=== PATIENT | male | born 1945 | race Caucasian/White ===

== ENCOUNTER 2019-03-18 13:30 | Inpatient (IN) | payer MEDICARE ==
[2019-03-18 13:47] VITALS: BMI 26.6
--- NOTE | 2019-03-18 14:25 | History and Physical Report ---
History of Present Illnes - History of Present Illness Reason for Visit: L TKR History of Present Illness: Patient was admitted to the [facility] for L TKR on 03-15-19. Post op course was uncomplicated. He will be admitted here for SNF for therapy as he is not suitable to go home to [place]. - Past Medical History Cardiac: HTN, Hyperlipidemia Pulmonary: Sleep Apnea Psych: Anxiety Musculoskeletal: Osteoarthritis ENT: Allergic rhinitis Renal/: Benign prostatic enlarg. Endocrine: Other (hyperglycemia) - Past Surgical History Past Surgical History: Other (shoulder surgery) - Past Family History Mother Family History: Father Family History: Other (living at ) - Past Social History Smoke: No Alcohol: None Drugs: None Lives: Alone - Health Maintenance Health Maintenance: Cholesterol, Influenza Vaccine, Pneumococcal Vaccine Influenza Vaccine: Current for this Influenza Season Pneumonia Vaccine: Yes Resuscitation Status: Resusciation Status Resuscitation Status Full Code Review of Systems - Review of Systems Constitutional: Weakness. negative: Fever Eyes: negative: pain ENT: negative: Ear Pain Respiratory: negative: Cough Cardiovascular: negative: Chest Pain Gastrointestinal: negative: Nausea, Abdominal Pain Genitourinary: negative: Dysuria Musculoskeletal: Leg Pain Skin: negative: Rash Neurological: Weakness - Medications/Allergies Allergies/Adverse Reactions: Allergies Allergy/AdvReac Type Severity Reaction Status Date / Time No Known Drug Allergies Allergy Verified 03/18/19 17:04 Home Medications: Home Medications Albuterol Sulfate [Proair Respiclick] 2 puff INH QID PRN 03/18/19 Aspirin [Irland[place]] 81 mg PO DAILY 03/18/19 Carboxymethylcellulose Sodium [Lubricating Plus] 1 each OP PRN PRN 03/18/19 Docusate Sodium [Colace] 100 mg PO BID 03/18/19 Enoxaparin Sodium [Lovenox] 40 mg SQ DAILY MDD use for 28 days 03/18/19 Finasteride [Proscar] 5 mg PO DAILY 03/18/19 Hydrochlorothiazide 12.5 mg PO AM 03/18/19 Loratadine [Claritin] 10 mg PO DAILY PRN 03/18/19 Multivitamin [Tab-A-Parth] 1 tab PO DAILY 03/18/19 Niacin 500 mg PO TID 03/18/19 Oxycodone HCl [Roxicodone] 5 mg PO Q4H PRN 03/18/19 Piroxicam [Feldene] 20 mg PO DAILY 03/18/19 Tamsulosin HCl 0.4 mg PO DAILY 03/18/19 metFORMIN HCl [Glucophage] 500 mg PO AM 03/18/19 Exam - Exam Vital Signs: Vital Signs (72 hours) 03/18/19 03/18/19 13:40 13:43 Temperature 99.5 F 99.5 F Pulse Rate [ 101 H 101 H Left] Respiratory 20 20 Rate Blood Pressure 151/97 151/97 [Left Arm] O2 Sat by Pulse 95 95 Oximetry General: Alert, Oriented to Person, Oriented to Place, Oriented to Time, Cooperative, No acute distress HEENT: Atraumatic, PERRLA, EOMI, Mouth Mucous membr. moist/[place] Neck: Normal Range of Motion Lungs: Clear to auscultation, Normal air movement, Speaks full Sentences Cardiovascular: Regular rate Abdomen: Normal bowel sounds, Soft Integumentary: Normal Extremities: No edema, Other (L knee incisision C/D/I) Neurological: Generalized Weakness Psych/Mental Status: Mental status NL, Mood NL, Appropriate Affect, Intact Judgment Assessment/Plan - Assessment/Plan (1) S/P total knee replacement Status: Acute Current Visit: Yes Plan: Patient set to [facility] at 11:30 and PCP 04-29-19 at 10:20. ON lovenox for 28 days. Will check CBC next week. Oxycodone sent for pain. Also piroxicam but since NF will give celebrex. (2) Ataxic gait Status: Acute Current Visit: Yes Plan: Admit to SNF for PT/OT. (3) Hyperglycemia Status: Acute Current Visit: Yes Plan: No diagnosis of DM but on metformin. Will monitor BS for a week then go from there. (4) HTN (hypertension) Status: Chronic Current Visit: No Qualifiers: Hypertension type: essential hypertension Qualified Code(s): I10 - Essential (primary) hypertension Plan: continue current meds. (5) Sleep apnea Status: Chronic Current Visit: No Plan: Continue CPap VTE Assessment - RISK FACTOR SCORE VTE RISK FACTOR SCORES: AGE OVER 60 YEARS, MAJOR SURGERY/ANESTHESIA TIME > 1 HOUR - RISK VTE MODERATE RISK: SCORE OF 2 (RISK PROXIMAL DVT 2-4%) PROPHYAXIS NEEDED
[2019-03-18] MEDS ORDERED: LORATADINE 10 MG TABLET PO PRN (16:33)
[2019-03-18] MEDS: oxyCODONE HCL 5 MG TABLET PO PRN ×2 (16:57→21:18)
[2019-03-18] MEDS: DOCUSATE SODIUM 100 MG CAPSULE PO SCH (21:05)
[2019-03-18] MEDS: NIACIN 500 MG TABLET.ER PO SCH (21:06)
[2019-03-19] MEDS: oxyCODONE HCL 5 MG TABLET PO PRN ×3 (02:43→20:59)
[2019-03-19] MEDS: ENOXAPARIN SODIUM 40 MG/0.4 ML DISP.SYRIN SQ SCH (08:21)
[2019-03-19] MEDS: DOCUSATE SODIUM 100 MG CAPSULE PO SCH ×2 (08:21→20:27)
[2019-03-19] MEDS: ASPIRIN 81 MG CHEW TAB PO SCH (08:21)
[2019-03-19] MEDS: metFORMIN HCl 500 MG TABLET PO SCH (08:21)
[2019-03-19] MEDS: FINASTERIDE 5 MG TABLET PO SCH (08:21)
[2019-03-19] MEDS: TAMSULOSIN HCL 0.4 MG CAP.ER.24H PO SCH (08:21)
[2019-03-19] MEDS: CELECOXIB 100 MG CAPSULE PO SCH (08:21)
[2019-03-19] MEDS: NIACIN 500 MG TABLET.ER PO SCH ×3 (08:22→20:27)
[2019-03-19] MEDS: hydroCHLOROthiazide 25 MG TABLET PO SCH (08:22)
[2019-03-19] MEDS: MULTIVITAMIN 1 EACH TABLET PO SCH (08:22)
[2019-03-20] MEDS ORDERED: traZODone HCL 50 MG TABLET ONE (02:07)
[2019-03-20] MEDS: TAMSULOSIN HCL 0.4 MG CAP.ER.24H PO SCH (09:26)
[2019-03-20] MEDS: hydroCHLOROthiazide 25 MG TABLET PO SCH (09:26)
[2019-03-20] MEDS: ENOXAPARIN SODIUM 40 MG/0.4 ML DISP.SYRIN SQ SCH (09:26)
[2019-03-20] MEDS: NIACIN 500 MG TABLET.ER PO SCH ×3 (09:27→20:14)
[2019-03-20] MEDS: FINASTERIDE 5 MG TABLET PO SCH (09:27)
[2019-03-20] MEDS: CELECOXIB 100 MG CAPSULE PO SCH (09:27)
[2019-03-20] MEDS: MULTIVITAMIN 1 EACH TABLET PO SCH (09:27)
[2019-03-20] MEDS: ASPIRIN 81 MG CHEW TAB PO SCH (09:27)
[2019-03-20] MEDS: DOCUSATE SODIUM 100 MG CAPSULE PO SCH ×2 (09:27→20:14)
[2019-03-20] MEDS: metFORMIN HCl 500 MG TABLET PO SCH (09:27)
[2019-03-20] MEDS: ACETAMINOPHEN 325 MG TABLET PO PRN (20:14)
[2019-03-21] MEDS: DOCUSATE SODIUM 100 MG CAPSULE PO SCH ×2 (09:47→21:12)
[2019-03-21] MEDS: ASPIRIN 81 MG CHEW TAB PO SCH (09:47)
[2019-03-21] MEDS: CELECOXIB 100 MG CAPSULE PO SCH (09:47)
[2019-03-21] MEDS: metFORMIN HCl 500 MG TABLET PO SCH (09:48)
[2019-03-21] MEDS: hydroCHLOROthiazide 25 MG TABLET PO SCH (09:48)
[2019-03-21] MEDS: TAMSULOSIN HCL 0.4 MG CAP.ER.24H PO SCH (09:48)
[2019-03-21] MEDS: ENOXAPARIN SODIUM 40 MG/0.4 ML DISP.SYRIN SQ SCH (09:49)
[2019-03-21] MEDS: FINASTERIDE 5 MG TABLET PO SCH (09:49)
[2019-03-21] MEDS: MULTIVITAMIN 1 EACH TABLET PO SCH (09:50)
[2019-03-21] MEDS: NIACIN 500 MG TABLET.ER PO SCH ×3 (09:50→21:13)
[2019-03-21] MEDS: oxyCODONE HCL 5 MG TABLET PO PRN (21:12)
[2019-03-22] MEDS: TAMSULOSIN HCL 0.4 MG CAP.ER.24H PO SCH (08:26)
[2019-03-22] MEDS: ENOXAPARIN SODIUM 40 MG/0.4 ML DISP.SYRIN SQ SCH (08:26)
[2019-03-22] MEDS: DOCUSATE SODIUM 100 MG CAPSULE PO SCH ×2 (08:26→20:22)
[2019-03-22] MEDS: oxyCODONE HCL 5 MG TABLET PO PRN ×2 (08:27→20:22)
[2019-03-22] MEDS: MULTIVITAMIN 1 EACH TABLET PO SCH (08:27)
[2019-03-22] MEDS: CELECOXIB 100 MG CAPSULE PO SCH (08:27)
[2019-03-22] MEDS: FINASTERIDE 5 MG TABLET PO SCH (08:27)
[2019-03-22] MEDS: ASPIRIN 81 MG CHEW TAB PO SCH (08:27)
[2019-03-22] MEDS: metFORMIN HCl 500 MG TABLET PO SCH (08:27)
[2019-03-22] MEDS: hydroCHLOROthiazide 25 MG TABLET PO SCH (08:27)
[2019-03-22] MEDS: NIACIN 500 MG TABLET.ER PO SCH ×3 (08:32→20:22)
[2019-03-22] MEDS: POLYETHYLENE GLYCOL 3350 17 GM POWD.PACK PO SCH (13:33)
--- NOTE | 2019-03-22 16:45 | Inpatient Progress Note ---
Subjective - Required Recertification Statement I anticipate X number of days because-include discharge plan: 4 - Review of Systems Events since last encounter: Ghulam is having some left knee redness over the incision. He is moving the knee and bearing weight over it easily. General: Denies: Chills, Night Sweats HEENT: Denies: Head Aches Pulmonary: Denies: Dyspnea, Cough Cardiovascular: Denies: Chest Pain Gastrointestinal: Denies: Nausea, Vomiting Genitourinary: Denies: Dysuria, Frequency Musculoskeletal: Denies: Neck Pain Neurological: Denies: Weakness, Numbness, Confusion Objective - Exam Vitals and I&O: Vital Signs Temp 98.6 F 03/22/19 09:00 Pulse 88 03/22/19 09:00 Resp 18 03/22/19 09:00 BP 156/86 03/22/19 09:00 Pulse Ox 95 03/22/19 09:00 Intake & Output 03/21/19 03/22/19 03/22/19 23:59 11:59 23:59 Intake Total 480 360 240 Balance 480 360 240 Intake: Oral 480 360 240 Other: Voiding Method Toilet Toilet # Voids 4 1 # Bowel Movements 1 0 0 General: Alert, Oriented to Person, Oriented to Place, Oriented to Time HEENT: Atraumatic, PERRLA Neck: Supple, No JVD Lungs: Clear to auscultation Cardiovascular: Regular rate Abdomen: Normal bowel sounds Extremities: Other (There is redness over the left knee incision. It is well approximated. Surprisingly good ROM of the knee is noted.) Skin: Normal, [place] Neurological: Normal speech Psych/Mental Status: Mental status NL - Results Results: Laboratory Results WBC 12.30 K/ul (4.00-12.00) H 03/22/19 06:00 RBC 3.25 M/ul (3.90-5.20) L 03/22/19 06:00 Hgb 10.3 g/dL (12.0-18.0) L 03/22/19 06:00 Hct 30.7 % (37.0-53.0) L 03/22/19 06:00 MCV 94.0 fl (80.0-100.0) 03/22/19 06:00 MCH 31.8 pg (28.0-34.0) 03/22/19 06:00 MCHC 33.7 g/dL (30.0-36.0) 03/22/19 06:00 RDW 10.8 % (11.3-14.3) L 03/22/19 06:00 Plt Count 317 K/mm3 (130-400) 03/22/19 06:00 Assessment/Plan - Assessment/Plan (1) S/P total knee replacement Status: Acute Current Visit: Yes Qualifiers: Laterality: left Qualified Code(s): Z96.652 - Presence of left artificial knee joint Assessment: with superficial incisional infection Plan: Start Clindamycin 300 mg po QID x 5 days
[2019-03-22] MEDS: CLINDAMYCIN HCL 150 MG CAPSULE PO SCH ×2 (16:57→20:21)
[2019-03-23] MEDS: oxyCODONE HCL 5 MG TABLET PO PRN ×3 (07:50→20:39)
[2019-03-23] MEDS: hydroCHLOROthiazide 25 MG TABLET PO SCH (09:20)
[2019-03-23] MEDS: TRIAMCINOLONE ACETONIDE 0.1% TP SCH ×2 (09:20→20:39)
[2019-03-23] MEDS: ASPIRIN 81 MG CHEW TAB PO SCH (09:20)
[2019-03-23] MEDS: ENOXAPARIN SODIUM 40 MG/0.4 ML DISP.SYRIN SQ SCH (09:20)
[2019-03-23] MEDS: TAMSULOSIN HCL 0.4 MG CAP.ER.24H PO SCH (09:21)
[2019-03-23] MEDS: metFORMIN HCl 500 MG TABLET PO SCH (09:21)
[2019-03-23] MEDS: FINASTERIDE 5 MG TABLET PO SCH (09:21)
[2019-03-23] MEDS: MULTIVITAMIN 1 EACH TABLET PO SCH (09:21)
[2019-03-23] MEDS: CELECOXIB 100 MG CAPSULE PO SCH (09:21)
[2019-03-23] MEDS: DOCUSATE SODIUM 100 MG CAPSULE PO SCH ×2 (09:21→20:39)
[2019-03-23] MEDS: CLINDAMYCIN HCL 150 MG CAPSULE PO SCH ×4 (09:21→20:39)
[2019-03-23] MEDS: NIACIN 500 MG TABLET.ER PO SCH ×3 (09:21→20:40)
[2019-03-23] MEDS: POLYETHYLENE GLYCOL 3350 17 GM POWD.PACK PO SCH (11:28)
[2019-03-24] MEDS: CLINDAMYCIN HCL 150 MG CAPSULE PO SCH ×4 (08:34→20:34)
[2019-03-24] MEDS: oxyCODONE HCL 5 MG TABLET PO PRN ×3 (08:34→20:34)
[2019-03-24] MEDS: MULTIVITAMIN 1 EACH TABLET PO SCH (08:34)
[2019-03-24] MEDS: TAMSULOSIN HCL 0.4 MG CAP.ER.24H PO SCH (08:34)
[2019-03-24] MEDS: ASPIRIN 81 MG CHEW TAB PO SCH (08:34)
[2019-03-24] MEDS: metFORMIN HCl 500 MG TABLET PO SCH (08:34)
[2019-03-24] MEDS: DOCUSATE SODIUM 100 MG CAPSULE PO SCH ×2 (08:34→20:34)
[2019-03-24] MEDS: CELECOXIB 100 MG CAPSULE PO SCH (08:34)
[2019-03-24] MEDS: FINASTERIDE 5 MG TABLET PO SCH (08:34)
[2019-03-24] MEDS: hydroCHLOROthiazide 25 MG TABLET PO SCH (08:35)
[2019-03-24] MEDS: ENOXAPARIN SODIUM 40 MG/0.4 ML DISP.SYRIN SQ SCH (08:37)
[2019-03-24] MEDS: TRIAMCINOLONE ACETONIDE 0.1% TP SCH ×2 (08:38→20:35)
[2019-03-24] MEDS: NIACIN 500 MG TABLET.ER PO SCH ×3 (08:38→20:35)
[2019-03-24] MEDS: POLYETHYLENE GLYCOL 3350 17 GM POWD.PACK PO SCH (12:12)
[2019-03-25] MEDS: oxyCODONE HCL 5 MG TABLET PO PRN ×3 (08:23→20:38)
[2019-03-25] MEDS: ASPIRIN 81 MG CHEW TAB PO SCH (09:07)
[2019-03-25] MEDS: NIACIN 500 MG TABLET.ER PO SCH ×3 (09:07→20:43)
[2019-03-25] MEDS: metFORMIN HCl 500 MG TABLET PO SCH (09:07)
[2019-03-25] MEDS: DOCUSATE SODIUM 100 MG CAPSULE PO SCH ×2 (09:07→20:37)
[2019-03-25] MEDS: TAMSULOSIN HCL 0.4 MG CAP.ER.24H PO SCH (09:07)
[2019-03-25] MEDS: CLINDAMYCIN HCL 150 MG CAPSULE PO SCH ×4 (09:07→20:37)
[2019-03-25] MEDS: CELECOXIB 100 MG CAPSULE PO SCH (09:07)
[2019-03-25] MEDS: MULTIVITAMIN 1 EACH TABLET PO SCH (09:07)
[2019-03-25] MEDS: ENOXAPARIN SODIUM 40 MG/0.4 ML DISP.SYRIN SQ SCH (09:07)
[2019-03-25] MEDS: FINASTERIDE 5 MG TABLET PO SCH (09:07)
[2019-03-25] MEDS: TRIAMCINOLONE ACETONIDE 0.1% TP SCH ×2 (09:10→20:37)
[2019-03-25] MEDS: hydroCHLOROthiazide 25 MG TABLET PO SCH (09:10)
[2019-03-25] MEDS: POLYETHYLENE GLYCOL 3350 17 GM POWD.PACK PO SCH (12:30)
[2019-03-26] MEDS: oxyCODONE HCL 5 MG TABLET PO PRN ×3 (07:50→21:49)
[2019-03-26] MEDS: TRIAMCINOLONE ACETONIDE 0.1% TP SCH ×2 (09:20→21:49)
[2019-03-26] MEDS: ENOXAPARIN SODIUM 40 MG/0.4 ML DISP.SYRIN SQ SCH (09:20)
[2019-03-26] MEDS: NIACIN 500 MG TABLET.ER PO SCH ×3 (09:20→21:49)
[2019-03-26] MEDS: CELECOXIB 100 MG CAPSULE PO SCH (09:21)
[2019-03-26] MEDS: ASPIRIN 81 MG CHEW TAB PO SCH (09:21)
[2019-03-26] MEDS: TAMSULOSIN HCL 0.4 MG CAP.ER.24H PO SCH (09:21)
[2019-03-26] MEDS: DOCUSATE SODIUM 100 MG CAPSULE PO SCH ×2 (09:21→21:48)
[2019-03-26] MEDS: MULTIVITAMIN 1 EACH TABLET PO SCH (09:21)
[2019-03-26] MEDS: metFORMIN HCl 500 MG TABLET PO SCH (09:21)
[2019-03-26] MEDS: hydroCHLOROthiazide 25 MG TABLET PO SCH (09:21)
[2019-03-26] MEDS: FINASTERIDE 5 MG TABLET PO SCH (09:21)
[2019-03-26] MEDS: CLINDAMYCIN HCL 150 MG CAPSULE PO SCH ×4 (09:21→21:49)
[2019-03-26] MEDS: POLYETHYLENE GLYCOL 3350 17 GM POWD.PACK PO SCH (11:42)
[2019-03-27] MEDS: ACETAMINOPHEN 325 MG TABLET PO PRN ×2 (03:06→16:13)
[2019-03-27] MEDS: FINASTERIDE 5 MG TABLET PO SCH (08:39)
[2019-03-27] MEDS: DOCUSATE SODIUM 100 MG CAPSULE PO SCH ×2 (08:39→21:03)
[2019-03-27] MEDS: CLINDAMYCIN HCL 150 MG CAPSULE PO SCH ×4 (08:39→21:04)
[2019-03-27] MEDS: MULTIVITAMIN 1 EACH TABLET PO SCH (08:39)
[2019-03-27] MEDS: ASPIRIN 81 MG CHEW TAB PO SCH (08:39)
[2019-03-27] MEDS: CELECOXIB 100 MG CAPSULE PO SCH (08:39)
[2019-03-27] MEDS: ENOXAPARIN SODIUM 40 MG/0.4 ML DISP.SYRIN SQ SCH (08:40)
[2019-03-27] MEDS: hydroCHLOROthiazide 25 MG TABLET PO SCH (08:40)
[2019-03-27] MEDS: TAMSULOSIN HCL 0.4 MG CAP.ER.24H PO SCH (08:40)
[2019-03-27] MEDS: metFORMIN HCl 500 MG TABLET PO SCH (08:40)
[2019-03-27] MEDS: NIACIN 500 MG TABLET.ER PO SCH ×3 (08:41→21:03)
[2019-03-27] MEDS: TRIAMCINOLONE ACETONIDE 0.1% TP SCH ×2 (08:41→21:03)
[2019-03-27] MEDS: oxyCODONE HCL 5 MG TABLET PO PRN ×2 (09:24→21:03)
[2019-03-27] MEDS: POLYETHYLENE GLYCOL 3350 17 GM POWD.PACK PO SCH (10:50)
[2019-03-28] MEDS: DOCUSATE SODIUM 100 MG CAPSULE PO SCH ×2 (09:42→20:30)
[2019-03-28] MEDS: CLINDAMYCIN HCL 150 MG CAPSULE PO SCH ×4 (09:42→20:30)
[2019-03-28] MEDS: TAMSULOSIN HCL 0.4 MG CAP.ER.24H PO SCH (09:42)
[2019-03-28] MEDS: ASPIRIN 81 MG CHEW TAB PO SCH (09:42)
[2019-03-28] MEDS: CELECOXIB 100 MG CAPSULE PO SCH (09:42)
[2019-03-28] MEDS: metFORMIN HCl 500 MG TABLET PO SCH (09:43)
[2019-03-28] MEDS: FINASTERIDE 5 MG TABLET PO SCH (09:43)
[2019-03-28] MEDS: MULTIVITAMIN 1 EACH TABLET PO SCH (09:43)
[2019-03-28] MEDS: NIACIN 500 MG TABLET.ER PO SCH ×3 (09:43→20:30)
[2019-03-28] MEDS: ENOXAPARIN SODIUM 40 MG/0.4 ML DISP.SYRIN SQ SCH (09:43)
[2019-03-28] MEDS: hydroCHLOROthiazide 25 MG TABLET PO SCH (09:43)
[2019-03-28] MEDS: TRIAMCINOLONE ACETONIDE 0.1% TP SCH ×2 (09:43→20:31)
[2019-03-28] MEDS: oxyCODONE HCL 5 MG TABLET PO PRN ×2 (09:51→20:30)
[2019-03-28] MEDS: POLYETHYLENE GLYCOL 3350 17 GM POWD.PACK PO SCH (10:31)
[2019-03-29] MEDS: oxyCODONE HCL 5 MG TABLET PO PRN ×2 (08:07→20:30)
[2019-03-29] MEDS: ENOXAPARIN SODIUM 40 MG/0.4 ML DISP.SYRIN SQ SCH (09:06)
[2019-03-29] MEDS: CELECOXIB 100 MG CAPSULE PO SCH (09:06)
[2019-03-29] MEDS: TRIAMCINOLONE ACETONIDE 0.1% TP SCH ×2 (09:06→20:31)
[2019-03-29] MEDS: DOCUSATE SODIUM 100 MG CAPSULE PO SCH ×2 (09:06→20:30)
[2019-03-29] MEDS: CLINDAMYCIN HCL 150 MG CAPSULE PO SCH ×4 (09:06→20:30)
[2019-03-29] MEDS: NIACIN 500 MG TABLET.ER PO SCH ×3 (09:06→20:31)
[2019-03-29] MEDS: hydroCHLOROthiazide 25 MG TABLET PO SCH (09:06)
[2019-03-29] MEDS: TAMSULOSIN HCL 0.4 MG CAP.ER.24H PO SCH (09:07)
[2019-03-29] MEDS: FINASTERIDE 5 MG TABLET PO SCH (09:07)
[2019-03-29] MEDS: MULTIVITAMIN 1 EACH TABLET PO SCH (09:07)
[2019-03-29] MEDS: metFORMIN HCl 500 MG TABLET PO SCH (09:07)
[2019-03-29] MEDS: ASPIRIN 81 MG CHEW TAB PO SCH (09:07)
[2019-03-29] MEDS: POLYETHYLENE GLYCOL 3350 17 GM POWD.PACK PO SCH (10:50)
[2019-03-29] MEDS: ACETAMINOPHEN 325 MG TABLET PO PRN (20:33)
[2019-03-30] MEDS: oxyCODONE HCL 5 MG TABLET PO PRN ×3 (02:08→20:34)
[2019-03-30] MEDS: TAMSULOSIN HCL 0.4 MG CAP.ER.24H PO SCH (09:08)
[2019-03-30] MEDS: CELECOXIB 100 MG CAPSULE PO SCH (09:08)
[2019-03-30] MEDS: DOCUSATE SODIUM 100 MG CAPSULE PO SCH ×2 (09:08→20:34)
[2019-03-30] MEDS: ASPIRIN 81 MG CHEW TAB PO SCH (09:08)
[2019-03-30] MEDS: hydroCHLOROthiazide 25 MG TABLET PO SCH (09:09)
[2019-03-30] MEDS: metFORMIN HCl 500 MG TABLET PO SCH (09:09)
[2019-03-30] MEDS: FINASTERIDE 5 MG TABLET PO SCH (09:09)
[2019-03-30] MEDS: ENOXAPARIN SODIUM 40 MG/0.4 ML DISP.SYRIN SQ SCH (09:10)
[2019-03-30] MEDS: TRIAMCINOLONE ACETONIDE 0.1% TP SCH ×2 (09:10→20:35)
[2019-03-30] MEDS: NIACIN 500 MG TABLET.ER PO SCH ×3 (09:10→20:35)
[2019-03-30] MEDS: MULTIVITAMIN 1 EACH TABLET PO SCH (09:19)
[2019-03-30] MEDS: POLYETHYLENE GLYCOL 3350 17 GM POWD.PACK PO SCH (11:41)
[2019-03-30] MEDS ORDERED: MAGNESIUM OXIDE 400 MG TABLET PO ONE (17:35)
[2019-03-30] MEDS: MELATONIN 3 MG TABLET PO SCH (20:34)
[2019-03-31] MEDS: ACETAMINOPHEN 325 MG TABLET PO PRN ×2 (03:37→20:35)
[2019-03-31] MEDS: oxyCODONE HCL 5 MG TABLET PO PRN ×2 (03:37→20:35)
[2019-03-31] MEDS: TRIAMCINOLONE ACETONIDE 0.1% TP SCH ×2 (09:34→20:35)
[2019-03-31] MEDS: CELECOXIB 100 MG CAPSULE PO SCH (09:35)
[2019-03-31] MEDS: TAMSULOSIN HCL 0.4 MG CAP.ER.24H PO SCH (09:35)
[2019-03-31] MEDS: DOCUSATE SODIUM 100 MG CAPSULE PO SCH ×2 (09:35→20:35)
[2019-03-31] MEDS: metFORMIN HCl 500 MG TABLET PO SCH (09:35)
[2019-03-31] MEDS: FINASTERIDE 5 MG TABLET PO SCH (09:35)
[2019-03-31] MEDS: NIACIN 500 MG TABLET.ER PO SCH ×3 (09:35→20:35)
[2019-03-31] MEDS: hydroCHLOROthiazide 25 MG TABLET PO SCH (09:35)
[2019-03-31] MEDS: MULTIVITAMIN 1 EACH TABLET PO SCH (09:35)
[2019-03-31] MEDS: ENOXAPARIN SODIUM 40 MG/0.4 ML DISP.SYRIN SQ SCH (09:35)
[2019-03-31] MEDS: ASPIRIN 81 MG CHEW TAB PO SCH (09:36)
[2019-03-31] MEDS: POLYETHYLENE GLYCOL 3350 17 GM POWD.PACK PO SCH (12:07)
[2019-03-31] MEDS: MELATONIN 3 MG TABLET PO SCH (20:35)
[2019-04-01] MEDS: oxyCODONE HCL 5 MG TABLET PO PRN ×3 (02:42→20:36)
[2019-04-01] MEDS: ACETAMINOPHEN 325 MG TABLET PO PRN ×2 (02:42→20:36)
[2019-04-01] MEDS: hydroCHLOROthiazide 25 MG TABLET PO SCH (08:42)
[2019-04-01] MEDS: CELECOXIB 100 MG CAPSULE PO SCH (08:42)
[2019-04-01] MEDS: TAMSULOSIN HCL 0.4 MG CAP.ER.24H PO SCH (08:43)
[2019-04-01] MEDS: ENOXAPARIN SODIUM 40 MG/0.4 ML DISP.SYRIN SQ SCH (08:43)
[2019-04-01] MEDS: TRIAMCINOLONE ACETONIDE 0.1% TP SCH ×2 (08:43→20:36)
[2019-04-01] MEDS: DOCUSATE SODIUM 100 MG CAPSULE PO SCH ×2 (08:43→20:35)
[2019-04-01] MEDS: metFORMIN HCl 500 MG TABLET PO SCH (08:43)
[2019-04-01] MEDS: MULTIVITAMIN 1 EACH TABLET PO SCH (08:43)
[2019-04-01] MEDS: FINASTERIDE 5 MG TABLET PO SCH (08:43)
[2019-04-01] MEDS: ASPIRIN 81 MG CHEW TAB PO SCH (08:43)
[2019-04-01] MEDS: NIACIN 500 MG TABLET.ER PO SCH ×3 (08:43→20:36)
[2019-04-01] MEDS: POLYETHYLENE GLYCOL 3350 17 GM POWD.PACK PO SCH (11:50)
[2019-04-01] MEDS: MELATONIN 3 MG TABLET PO SCH (20:35)
[2019-04-02] MEDS: ACETAMINOPHEN 325 MG TABLET PO PRN (03:30)
[2019-04-02] MEDS: oxyCODONE HCL 5 MG TABLET PO PRN (03:30)
[2019-04-02 08:50] VITALS: BP 162/93
[2019-04-02] MEDS: ENOXAPARIN SODIUM 40 MG/0.4 ML DISP.SYRIN SQ SCH (08:53)
[2019-04-02] MEDS: CELECOXIB 100 MG CAPSULE PO SCH (08:53)
[2019-04-02] MEDS: TRIAMCINOLONE ACETONIDE 0.1% TP SCH (08:54)
[2019-04-02] MEDS: hydroCHLOROthiazide 25 MG TABLET PO SCH (08:54)
[2019-04-02] MEDS: metFORMIN HCl 500 MG TABLET PO SCH (08:54)
[2019-04-02] MEDS: MULTIVITAMIN 1 EACH TABLET PO SCH (08:54)
[2019-04-02] MEDS: NIACIN 500 MG TABLET.ER PO SCH (08:54)
[2019-04-02] MEDS: FINASTERIDE 5 MG TABLET PO SCH (08:54)
[2019-04-02] MEDS: DOCUSATE SODIUM 100 MG CAPSULE PO SCH (08:54)
[2019-04-02] MEDS: ASPIRIN 81 MG CHEW TAB PO SCH (08:54)
[2019-04-02] MEDS: TAMSULOSIN HCL 0.4 MG CAP.ER.24H PO SCH (08:55)
--- NOTE | 2019-04-02 09:01 | Discharge Summary ---
Discharge [facility] Discharge Date: 04/02/19 Discharge To: Home History of Present Illness: Patient was admitted to the [facility] for L TKR on 03-15-19. Post op course was uncomplicated. He will be admitted here for SNF for therapy as he is not suitable to go home to [place]. Condition at Discharge: Stable Home Medications: Ambulatory Orders Medication Instructions Recorded Albuterol Sulfate [Proair 2 puff INH QID PRN 03/18/19 Respiclick] Aspirin [[place]land[place]] 81 mg PO DAILY 03/18/19 Carboxymethylcellulose Sodium 1 each OP PRN PRN 03/18/19 [Lubricating Plus] Docusate Sodium [Colace] 100 mg PO BID 03/18/19 Enoxaparin Sodium [Lovenox] 40 mg SQ DAILY MDD use for 28 days 03/18/19 Finasteride [Proscar] 5 mg PO DAILY 03/18/19 Hydrochlorothiazide 12.5 mg PO AM 03/18/19 Loratadine [Claritin] 10 mg PO DAILY PRN 03/18/19 Multivitamin [Tab-A-Parth] 1 tab PO DAILY 03/18/19 Niacin 500 mg PO TID 03/18/19 Oxycodone HCl [Roxicodone] 5 mg PO Q4H PRN 03/18/19 Piroxicam [Feldene] 20 mg PO DAILY 03/18/19 Tamsulosin HCl 0.4 mg PO DAILY 03/18/19 metFORMIN HCl [Glucophage] 500 mg PO AM 03/18/19 Consultations this Visit: Other (Therapy) Procedures this Visit: None Allergies/Adverse Reactions: Allergies Allergy/AdvReac Type Severity Reaction Status Date / Time No Known Drug Allergies Allergy Verified 03/18/19 17:04 Patient Problems: Current Active Problems Problem Status Onset Ataxic gait Acute Hyperglycemia Acute S/P total knee replacement Acute Discharge Summary: He is discharged to home. Discharge to home: Medications on discharge: Tylenol 650 mg by mouth every four hours as needed for pain. Aspirin 81 mg by mouth daily Celebrex 200 mg by mouth daily Colace 100 mg by mouth two times daily Proscar (finasteride) 5 mg by mouth daily Hydrochlorothiazide 12.5 mg by mouth daily Loratadine 10 mg by mouth daily Metformin 500 mg by mouth every morning. Multivitamin 1 by mouth daily Niaspan 500 mg by mouth three times daily Flomax 0.4 mg by mouth daily. Follow up with orthopedics as scheduled. Hospital Course: Patient did well, but did have an superficial wound infection of the knee, but this was not accompanied by fever or elevated WBC. He was started on clindamycin, and recovered well. He tolerated and enthusiastically participated in therapy.
== END 2019-04-02 09:45 | disposition home or self-care (01) | DRG 560 ==
LOC: SOUTH 13:30
PROVIDERS: ADMIT Family Medicine; ATTEND Family Medicine
DX: Z47.1 Aftercare following joint replacement surgery (principal); T81.41XA Infection following a procedure, superficial incisional surgical site, initial encounter; I10 Essential (primary) hypertension; E78.5 Hyperlipidemia, unspecified; G47.30 Sleep apnea, unspecified; F41.9 Anxiety disorder, unspecified; M19.90 Unspecified osteoarthritis, unspecified site; N40.0 Benign prostatic hyperplasia without lower urinary tract symptoms; R73.9 Hyperglycemia, unspecified; Z96.652 Presence of left artificial knee joint; Z79.82 Long term (current) use of aspirin; Z87.891 Personal history of nicotine dependence; Z79.899 Other long term (current) drug therapy; Z79.84 Long term (current) use of oral hypoglycemic drugs; Y83.4 Other reconstructive surgery as the cause of abnormal reaction of the patient, or of later complication, without mention of misadventure at the time of the procedure; Y92.238 Other place in hospital as the place of occurrence of the external cause
CPT/HCPCS: 85027; 99221; 99231; 99238; J1650; A9270